=== PATIENT | male | born 1950 | race Caucasian/White ===

== ENCOUNTER 2017-07-02 18:08 | Emergency (ER) | payer OTHER ==
[~2017-07-02] VITALS: Ht 165.1 cm; Wt 88.6 kg
[~2017-07-02 18:08] MED LIST: ANAPROX DS550 M1 PO; CEFDINIR300 MG PO; HYDROCODON-ACE1 EAC7 PO; LIPITOR80 MG PO; LISINOPRIL5 MG PO; NAPROSYN500 MG PO; NO HOME MEDS; NORVASC10 MG PO; ULTRAM50 MG PO; ZITHROMAX Z-PA250 MG PO
[2017-07-02 18:50] LABS: BASOPHIL (%) 0.6 % (0-1); EOSINOPHIL (%) 0 % (0-5); HEMATOCRIT 39.8 % (38.0-50.0); HEMOGLOBIN 13.6 G/DL (12.5-16.6); IMMATURE GRANULOCYTE (%) 0.4 % (0.0-0.7); LYMPHOCYTE (%) 7.7 % (15-42); LYMPHOCYTE COUNT 0.5 K/uL (1.0-2.8); MCHC 34.2 G/DL (30.0-36.0); MCV 87.7 FL (86-99); MONOCYTE (%) 10.6 % (3-12); MONOCYTE COUNT 0.7 K/uL (0-0.8); NEUTROPHIL (%) 80.7 % (45-76); NEUTROPHIL COUNT 5.6 K/uL (1.8-6.4); PLATELET COUNT 210 K/uL (156-360); RBC DIS.WIDTH-CV 12.9 % (11.8-14.6); RBC DIS.WIDTH-SD 41.1 % (39-53); RED BLOOD COUNT 4.54 M/uL (4.00-5.50)
[2017-07-02 18:59] LABS: ALBUMIN 4.3 g/dL (3.2-4.8); CHLORIDE 99 mEq/L (99-109); SODIUM 133 mEq/L (136-147)
[2017-07-02 19:00] LABS: GLUCOSE 118 mg/dL (70-99); TOTAL PROTEIN 7.3 g/dL (6.4-8.3)
[2017-07-02 19:02] LABS: TOTAL BILIRUBIN 1.2 mg/dL (0.0-1.0)
[2017-07-02 19:04] LABS: ALKALINE PHOSPHATASE 139 IU/L (3-129); CREATININE 1.5 mg/dL (0.6-1.3); GFR ESTIMATE (CALCULATED) 50 mL/min/ (58.99-99999)
[2017-07-02 19:05] LABS: UREA NITROGEN (BUN) 14 mg/dL (9-23)
[2017-07-02 19:06] LABS: AST (GOT) 28 IU/L (2-34); DIRECT BILIRUBIN 0.5 mg/dL (0.0-0.3)
[2017-07-02 19:07] LABS: ALT (GPT) 32 IU/L (3-49); LIPASE 41 U/L (1.0-51.0)
[2017-07-02 19:23] LABS: BASE EXCESS 1.1 mEq/L (-3 to +3); BICARBONATE 25.1 mEq/L (22-26); CARBOXY HGB 2.4 % (0-5); COMMENTS - BLOOD GASES C+; FI02 21 %; METHEMOGLOBIN 1.1 % (0-1.5); PCO2 37 mm Hg (35-45); PO2 65 mm Hg (80-100); SITE RR; TOTAL RESP RATE 16 resp/min; pH 7.44 (7.35-7.45)
[2017-07-02 19:24] LABS: CREATINE KINASE 172 IU/L (1-294)
[2017-07-02] MEDS ORDERED: LISINOPRIL20 MG PO (22:37)
[2017-07-02] MEDS ORDERED: ATORVASTATIN CA80 MG PO (22:39)
[2017-07-02 22:52] LABS: APPEARANCE CLEAR ((CLEAR)); BILIRUBIN NEGATIVE; BLOOD SMALL; COLOR STRAW ((YELLOW)); GLUCOSE (STRIP) NEGATIVE; KETONES NEGATIVE; LEUKOCYTES NEGATIVE; NITRITE NEGATIVE; PROTEIN (STRIP) NEGATIVE; SPECIFIC GRAVITY 1.026 (1.000-1.030); UROBILINOGEN 0.2 MG/DL (0.2-1.0)
[2017-07-02 23:04] LABS: BACTERIA NONE SEEN /HPF; EPITHELIAL CELLS NONE SEEN /HPF; MUCUS TRACE /LPF; RED BLOOD CELLS 0-5 /HPF (0-5); WHITE BLOOD CELLS 0-5 /HPF (0-5)
[2017-07-03] MEDS ORDERED: TAMIFLU75 MG PO (00:19)
[2017-07-03] MEDS ORDERED: PREDNISONE20 MG PO (00:19)
[2017-07-03 00:29] VITALS: BP 131/58
== END 2017-07-03 00:30 | disposition left against medical advice (07) ==
LOC: EME 18:08
PROVIDERS: Physician Assistant
DX: R19.7 Diarrhea, unspecified (principal); N17.9 Acute kidney failure, unspecified; J10.1 Influenza due to other identified influenza virus with other respiratory manifestations; J40 Bronchitis, not specified as acute or chronic; E86.0 Dehydration; N28.9 Disorder of kidney and ureter, unspecified; I10 Essential (primary) hypertension; E78.5 Hyperlipidemia, unspecified; Z79.891 Long term (current) use of opiate analgesic; Z87.891 Personal history of nicotine dependence; Z86.69 Personal history of other diseases of the nervous system and sense organs; Z86.018 Personal history of other benign neoplasm
CPT/HCPCS: 36600; 71260; 74177; 80048; 80076; 81003; 82550; 82803; 83605; 83690; 85025; 87493; 87502; 87506; 93005; 99281; 99285; J7030; J7512